=== PATIENT | female | born 1990 | race Caucasian/White ===

== ENCOUNTER 2020-07-05 08:44 | Outpatient (CLI) | payer MEDICAID, SELFPAY ==
--- NOTE | 2020-07-05 08:45 | RT.EKG_ITS ---
APPROVED REPORT Exam: Resting ECG Patient Location: O HR:63 bpm ECG Measurements Heart Rate 63 AXIS GA 163 P 46 QRSd 99 QRS 63 QT 450 T 54 QTc 459 Conclusion Sinus rhythm...normal P axis, V-rate 60- 99
== END 2020-07-05 08:45 | disposition home or self-care (01) ==
PROVIDERS: Visit Provider Family Medicine
DX: Z79.899 Other long term (current) drug therapy (principal); Z13.6 Encounter for screening for cardiovascular disorders
CPT/HCPCS: 93005; 93010